=== PATIENT | male | born 1945 | race Two or more races ===

== ENCOUNTER 2022-06-12 18:26 | Emergency (ER) | payer SELFPAY ==
[~2022-06-12] VITALS: Ht 167.6 cm; Wt 101.0 kg
[2022-06-12 18:34] VITALS: BP 144/88
[2022-06-12] MEDS ORDERED: CARV12.545 MT (23:00)
[2022-06-12] MEDS ORDERED: GABA-529 MT (23:00)
[2022-06-12] MEDS ORDERED: NPH,100V SQ (23:00)
[2022-06-12] MEDS ORDERED: GLIP5TAB12 MT (23:00)
[2022-06-12] MEDS ORDERED: PARO-41 MT (23:00)
[2022-06-12] MEDS ORDERED: ATOR40TA70 MT (23:00)
[2022-06-12] MEDS ORDERED: WARF-53 MT (23:00)
[2022-06-12] MEDS ORDERED: MONT-39 PO (23:00)
[2022-06-12] MEDS ORDERED: METF-415 MT (23:00)
[2022-06-12] MEDS ORDERED: LOSA25TA26 MT (23:00)
== END 2022-06-12 23:10 | disposition home or self-care (01) ==
LOC: ER 18:26
DX: I10 Essential (primary) hypertension (principal); Z00.00 Encounter for general adult medical examination without abnormal findings; Z68.35 Body mass index [BMI] 35.0-35.9, adult; Z79.899 Other long term (current) drug therapy
CPT/HCPCS: 99283

== ENCOUNTER 2023-02-12 14:56 | Emergency (ER) | payer MEDICAID ==
[~2023-02-12] VITALS: Ht 152.4 cm; Wt 132.0 kg
[~2023-02-12 14:56] MED LIST: ATOR40TA70 MT; CARV12.545 MT; GABA-529 MT; GLIP5TAB12 MT; LOSA25TA26 MT; METF-415 MT; MONT-39 PO; NPH,100V SQ; PARO-41 MT; WARF-53 MT
[2023-02-12] MEDS ORDERED: ACETAMINOPHEN 325MG TABLET PO ONE (16:30)
[2023-02-12 18:18] LABS: BASOPHILS % 0.5 % (0.0-2.0); EOSINOPHILS % 4.1 % (0.0-5.0); HEMATOCRIT. 36.9 % (42.0-52.0); HEMOGLOBIN. 12.4 g/dL (14.0-18.0); LYMPHOCYTES % 22.2 % (20.0-50.0); MEAN CORPUSCULAR HEMOGLOBIN 29.6 pg (28.0-32.0); MEAN CORPUSCULAR VOLUME 88.2 fL (80.0-94.0); MEAN PLATELET VOLUME 6.9 fl (7.4-10.4); MONOCYTES % 8.2 % (2.0-8.0); PLATELET 270 x1000/uL (130-400); RED BLOOD CELL COUNT 4.19 mill/uL (4.7-6.1); RED CELL DISTRIBUTION WIDTH 13.9 % (11.6-14.6)
[2023-02-12 18:25] LABS: CHLORIDE 100 mEq/L (98-107)
[2023-02-12] MEDS ORDERED: ACETAMINOPHEN 500MG TABLET PO NR (18:30)
[2023-02-12 18:38] LABS: INR 1.1; PARTIAL THROMBOPLASTIN TIME 32.1 sec (23.4-31.0); PROTHROMBIN TIME 11.7 sec (9.6-11.0)
[2023-02-12] MEDS ORDERED: ONDANSETRON HCL 4MG/2ML INJ IM ONE (18:45)
[2023-02-12] MEDS ORDERED: MORPHINE SULFATE 4 MG/ML CPJ (NOT FOR IM USE) IV ONE (18:45)
[2023-02-12] MEDS ORDERED: IPRATROPIUM/ALBUTEROL 0.5-3(2.5)MG/3ML NEB HHN ONE (19:45)
[2023-02-12 21:26] VITALS: BP 163/81
[2023-02-12] MEDS ORDERED: ACET-2708 MT (21:50)
[2023-02-12] MEDS ORDERED: ONDA4TAB50 MT (21:50)
[2023-02-12] MEDS ORDERED: FURO-152 MT (21:50)
== END 2023-02-12 23:39 | disposition home or self-care (01) ==
LOC: ER 14:56
DX: R51.9 Headache, unspecified (principal); E11.9 Type 2 diabetes mellitus without complications; E78.00 Pure hypercholesterolemia, unspecified; I10 Essential (primary) hypertension; Z86.73 Personal history of transient ischemic attack (TIA), and cerebral infarction without residual deficits; Z79.899 Other long term (current) drug therapy
CPT/HCPCS: 36415; 70450; 71045; 80053; 83880; 84484; 85025; 85610; 85730; 93005; 96372; 96374; 99285; J2270; J2405; Z7610

== ENCOUNTER 2023-04-21 20:01 | Emergency (ER) | payer MEDICAID ==
[~2023-04-21] VITALS: Ht 172.7 cm; Wt 132.0 kg
[~2023-04-21 20:01] MED LIST changes: +ACET-2708 MT; +FURO-152 MT; +ONDA4TAB50 MT
[2023-04-21 20:26] VITALS: BP 155/90
[2023-04-21 20:58] LABS: BASOPHILS % 0.1 % (0.0-2.0); EOSINOPHILS % 1.1 % (0.0-5.0); HEMATOCRIT. 40.1 % (42.0-52.0); HEMOGLOBIN. 13.7 g/dL (14.0-18.0); LYMPHOCYTES % 12.6 % (20.0-50.0); MEAN CORPUSCULAR HEMOGLOBIN 29.6 pg (28.0-32.0); MEAN CORPUSCULAR VOLUME 86.6 fL (80.0-94.0); MONOCYTES % 8.3 % (2.0-8.0); NEUTROPHILS % 77.9 % (40.0-76.0); PLATELET 280 x1000/uL (130-400); RED BLOOD CELL COUNT 4.63 mill/uL (4.7-6.1)
[2023-04-21 21:04] LABS: CHLORIDE 98 mEq/L (98-107)
[2023-04-21 21:09] LABS: INR 1.1; PARTIAL THROMBOPLASTIN TIME 36.2 sec (23.4-31.0); PROTHROMBIN TIME 12.2 sec (9.6-11.0)
[2023-04-22 02:47] LABS: CLARITY URINE CLEAR (CLEAR); COLOR URINE YELLOW (YELLOW); KETONES URINE TRACE (NEGATIVE); LEUKOCYTE ESTERASE URINE TRACE (NEGATIVE); NITRITE URINE NEGATIVE (NEGATIVE); OCCULT BLOOD URINE NEGATIVE (NEGATIVE); PROTEIN URINE NEGATIVE (NEGATIVE); SPECIFIC GRAVITY URINE 1.019 (1.005-1.030)
[2023-04-22] MEDS ORDERED: POLY17PO3 MT (05:22)
== END 2023-04-22 05:30 | disposition home or self-care (01) ==
LOC: ER 20:01
DX: K62.5 Hemorrhage of anus and rectum (principal); I10 Essential (primary) hypertension; E78.00 Pure hypercholesterolemia, unspecified; E11.9 Type 2 diabetes mellitus without complications; Z79.899 Other long term (current) drug therapy; Z86.73 Personal history of transient ischemic attack (TIA), and cerebral infarction without residual deficits
CPT/HCPCS: 36415; 71045; 74176; 80053; 81003; 85025; 86850; 86900; 93005; 99285